=== PATIENT | male | born 1960 | race Caucasian/White ===

== ENCOUNTER → 2017-03-30 | Outpatient (CLI) | payer BC ==
--- NOTE | 2017-03-30 22:47 | MR ---
EXAMINATION TYPE: MR knee RT wo con DATE OF EXAM: 03/30/2017 6:42 PM COMPARISON: Outside radiographs 03/16/2017 HISTORY: 57-year-old male with knee pain and Swelling for one to 2 years, no known Trauma TECHNIQUE: Multiplanar, multisequence imaging of the right knee is performed without IV contrast. FINDINGS: The ACL and PCL are intact. There is edematous change on either side of the intact MCL. LCL complex is intact. There is a tear extending throughout the anterior horn and body of the lateral meniscus. In addition, there may be a small inner margin radial tear of the posterior horn close to but not at the posterio r root, sagittal PD FS image 22. Lateral compartment articular cartilage volume is maintained. There is an oblique tear at the junction of the posterior horn and body of the medial meniscus. Media l compartment articular cartilage volume is maintained. There is a moderate thickness focal cartilage fissure along the mid patella with some underlying subc hondral cystic change, axial image 18 and sagittal image 19. Otherwise, the patellofemoral compartmen t articular cartilage volume is maintained. Nonspecific anterior soft tissue swelling. Extensor mechanism is intact. There is a hsmra-zj-hfldncyq knee joint effusion as well as a small leaking Farrell's cyst. Small effus ion within the deep infrapatellar bursa also noted. Additional small ganglions measuring up to 1.4 cm at the origin of both the medial and lateral heads of the gastrocnemius. Normal popliteal artery anatomy with mild diffuse muscular atrophy. No suspicious bone marrow replace ment. IMPRESSION: 1. Tear involving the anterior horn and body of the lateral meniscus. Additional small inner margin r adial tear of the posterior horn. 2. Tear at the junction of the posterior horn and body of the medial meniscus. 3. Grade 1 MCL sprain. 4. Moderate thickness focal chondral fissure along the mid patella. 5. Small to moderate knee joint effusion and small leaking Farrell's cyst. Nonspecific anterior soft ti ssue swelling.
== END | disposition home or self-care (01) ==
LOC: RADMRIMAIN 18:03
PROVIDERS: ATTEND Orthopaedic Surgery
DX: M23.241 Derangement of anterior horn of lateral meniscus due to old tear or injury, right knee (principal); M23.251 Derangement of posterior horn of lateral meniscus due to old tear or injury, right knee

== ENCOUNTER → 2017-05-18 | Outpatient (CLI) | payer BC ==
--- NOTE | 2017-05-19 09:55 | ECHOF ---
Referral Reason:I42.9 cardiomyopathy MEASUREMENTS -------- HEIGHT: 182.9 cm WEIGHT: 93.0 kg BP: 111/66 IVSd: 1.0 cm (0.6 - 1.1) LVIDd: 5.2 cm (3.9 - 5.3) LVPWd: 1.2 cm (0.6 - 1.1) IVSs: 1.3 cm LVIDs: 4.2 cm LVPWs: 1.6 cm Ao Diam: 3.3 cm (2.0 - 3.7) AV Cusp: 2.4 cm (1.5 - 2.6) LA Diam: 3.2 cm (2.7 - 3.8) MV EXCURSION: 23.254 mm (> 18.000) MV EF SLOPE: 78 mm/s (70 - 150) EPSS: 0.9 cm MV E Bennie: 0.59 m/s MV DecT: 107 ms MV A Bennie: 0.61 m/s MV E/A Ratio: 0.97 RAP: 5.00 mmHg RVSP: 20.01 mmHg FINDINGS -------- Sinus rhythm. This was a technically good study. There is borderline concentric left ventricular hypertrophy. Overall left ventricular systolic function is low-normal with, an EF between 50 - 55 %. The right ventricle is normal in size and function. The left atrium is normal in size. The right atrium is normal in size. 1.5mg of Definity was utilized to rule out thrombus The aortic valve is trileaflet, and appears structurally normal. No aortic stenosis or regurgitation. Mild mitral regurgitation is present. There is mild mitral valve prolapse , predominately a posteriorly directed jet. Mild tricuspid regurgitation present. The right ventricular systolic pressure, as measured by Doppler, is 20.01mmHg. Pulmonic valve appears structurally normal. The aortic root size is normal. The pericardium is normal. CONCLUSIONS -------- 1. Sinus rhythm. 2. Mild mitral regurgitation is present. 3. There is mild mitral valve prolapse. 4. , predominately a posteriorly directed jet. 5. Mild tricuspid regurgitation present. 6. The right ventricular systolic pressure, as measured by Doppler, is 20.01mmHg. 7. Pulmonic valve appears structurally normal. 8. The aortic root size is normal. 9. The pericardium is normal. 10. This was a technically good study. 11. There is borderline concentric left ventricular hypertrophy. 12. Overall left ventricular systolic function is low-normal with, an EF between 50 - 55 %. 13. The right ventricle is normal in size and function. 14. The left atrium is normal in size. 15. The right atrium is normal in size. 16. 1.5mg of Definity was utilized to rule out thrombus 17. The aortic valve is trileaflet, and appears structurally normal. No aortic stenosis or regurgitation. CUSTOMER CARE CONSULTANT: Sandie Gavin RDCS
== END | disposition home or self-care (01) ==
LOC: RADECHMAIN 13:47
PROVIDERS: ATTEND Internal Medicine
DX: I08.1 Rheumatic disorders of both mitral and tricuspid valves (principal)
CPT/HCPCS: 93306; Q9957

== ENCOUNTER → 2017-05-21 | Outpatient (CLI) | payer BC ==
[2017-05-21 11:37] LABS: EKG EKG PERFORMED
[2017-05-21 12:30] LABS: Basophils % (A) 1 %; CH 31.7; CHCM 34.1; Eosinophils # (A) 0.2 k/uL (0-0.7); Eosinophils % (A) 3 %; HCT 43.2 % (39.0-53.0); HDW 2.32; Luc # (Auto) 0.14; Luc % (Auto) 3; Lymphocytes # (A) 1.5 k/uL (1.0-4.8); Lymphocytes % (A) 30 %; MCH 32.5 pg (25.0-35.0); MCHC 34.7 g/dL (31.0-37.0); MCV 93.5 fL (80.0-100.0); Mean Platelet Volume 7.3; Monocytes # (A) 0.3 k/uL (0-1.0); Monocytes % (A) 5 %; Neutrophils # (A) 2.9 k/uL (1.3-7.7); Neutrophils % (A) 58 %; RBC 4.63 m/uL (4.30-5.90); WBC (Perox) 5.13
[2017-05-21 13:11] LABS: Anion Gap 11 mmol/L; Carbon Dioxide 28 mmol/L (22-30); Chloride 103 mmol/L (98-107); Potassium 4.7 mmol/L (3.5-5.1); Sodium 142 mmol/L (137-145)
== END | disposition home or self-care (01) ==
LOC: LABPAT 11:29
PROVIDERS: ATTEND Orthopaedic Surgery
DX: Z01.810 Encounter for preprocedural cardiovascular examination (principal); M23.91 Unspecified internal derangement of right knee
CPT/HCPCS: 36415; 80051; 85025; 93005

== ENCOUNTER 2017-05-27 08:43 | Day surgery (SDC) | payer BC ==
[2017-05-21 11:07] VITALS: BMI 27.8
--- NOTE | 2017-05-27 07:11 | P.HPOR ---
History of Present Illness H&P Date: 05/27/17 Chief Complaint: 57-year-old patient seen with progressive right knee pain. Past Medical History Past Medical History: Hypertension History of Any Multi-Drug Resistant Organisms: None Reported Past Surgical History: Heart Catheterization Additional Past Surgical History / Comment(s): sx on sade big toes Past Anesthesia/Blood Transfusion Reactions: Postoperative Nausea & Vomiting ( PONV) Smoking Status: Former smoker - Past Family History Brother(s) Family Medical History: Cancer Additional Family Medical History / Comment(s): colon Medications and Allergies Home Medications Medication Instructions Recorded Confirmed Type Carvedilol [Coreg] 3.125 mg PO BID 05/21/17 05/21/17 History Lisinopril [Zestril] 2.5 mg PO QAM 05/21/17 05/21/17 History Allergies Allergy/AdvReac Type Severity Reaction Status Date / Time No Known Allergies Allergy Verified 05/21/17 10:58 Physical Examination Osteopathic Statement: *. No significant issues noted on an osteopathic structural exam other than those noted in the History and Physical/Consult. Range of motion 0-130. Tenderness along the medial joint line. Positive medial Ankush's. Ligaments are stable. Hip rotation is without pain. Distal neurovascular exam is intact. Results X-ray right knee 03/16/17 mild osteoarthritis MRI right knee 03/30/17 medial and lateral meniscal tears Assessment and Plan Plan: Assessment: Internal derangement right knee with medial and lateral meniscal tears Plan: Arthroscopy right knee with partial medial and lateral meniscectomy and debridement
[~2017-05-27 08:43] MED LIST: DEXAMETHASONE SOD PHOSPHATE 10 MG/ML 1 ML VIAL IV ONE; HYDROmorphone 1 MG/ML 1 ML SYRINGE IVP PRN; LACTATED RINGERS 1,000 ML IV SCH; MIDAZOLAM 2 MG/2 ML VIAL IV PRN; ONDANSETRON 4 MG/2 ML VIAL IVP ONE; ceFAZolin 2 GM in SODIUM CHLORIDE 0.9% 100 ML IVPB ONE
[2017-05-27] MEDS ORDERED: LIDOCAINE 1% 20 ML VIAL (10MG/ML) FOR IV START INTRADERMA ONE (09:55)
[2017-05-27] MEDS ORDERED: BUPIVACAIN-EPI 0.25%-1:200,000 30 ML VIAL INTRAARTIC ONE (10:49)
[2017-05-27 11:50] VITALS: TEMP 97.6
--- NOTE | 2017-05-27 11:52 | P.OP ---
Date of Procedure: 05/27/17 Preoperative Diagnosis: Internal derangement right knee Postoperative Diagnosis: 1. Tear lateral meniscus right knee 2. 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 Grade 2 chondromalacia patella right knee 4. Reactive synovitis lateral and suprapatellar compartments right knee Procedure(s) Performed: 1. Arthroscopic partial lateral meniscectomy right knee 2. Arthroscopic chondroplasty lateral femoral condyle right knee 3. Arthroscopic chondroplasty patella right knee 4. Arthroscopic partial synovectomy medial and suprapatellar compartments right knee Implants: Anesthesia: MATTA, local Surgeon: Robert Westbrook Estimated Blood Loss (ml): 10 Pathology: none sent Condition: stable Disposition: PACU Indications for Procedure: 57-year-old patient seen with progressive right knee pain. After treatment options were discussed, he elected to proceed with arthroscopy. Operative Findings: See description of procedure Description of Procedure: Patient was taken to the operative suite. Patient underwent a general anesthetic by the department of anesthesia. Patient was given preoperative antibiotics. The right lower extremity was placed in a well-padded arthroscopic leg horn. The right leg was prepped and draped in the normal sterile orthopedic fashion. A lateral parapatellar and suprapatellar incision was made. Trochars were inserted. Arthroscopy was initiated. Suprapatellar pouch revealed thick reactive synovitis. The patellofemoral joint appeared to articulate congruently. There was grade 2 chondromalacia with osteochondral tears. The scope was guided into the medial gutter. Loose bodies or plica were identified. The scope was then guided into the medial compartment. A medial parapatellar incision was made. Trocar inserted followed by probe. The medial meniscus appeared stable. Mild grade 1 chondromalacia changes of the medial compartment with no osteochondral tears. No loose bodies or reactive synovitis. Scope and probe were then guided into the intercondylar notch. Cruciates were identified, probed and found to be stable. The scope and probe were then guided into lateral compartment. There was a complex tear of the lateral meniscus involving the anterior horn, mid body and posterior horn. There were grade 1 chondromalacia changes of the lateral femoral condyle with small osteochondral tears present. There was reactive synovitis anteriorly. There were no loose bodies. A partial lateral meniscectomy was now performed down to stable tissue. I performed a chondroplasty of the lateral femoral condyle and partial synovectomy. The residual meniscus was found to be stable as was the residual osteochondral surface. The scope was in guided back into the suprapatellar compartment. I introduced a motorized shaver into the suprapatellar compartment debriding out some piecemeal fragments of meniscus. I performed a chondroplasty of the patella down to stable tissue followed by partial synovectomy. The shaver was removed. I took one more look on the entire knee, no residual debris. Instruments were now removed from the joint. The joint was infiltrated with .25% Marcaine. Steri-Strips were applied to the portal sites. Sterile dressings were applied. The patient was placed into a JAX hose. No tourniquet was utilized. The patient was awakened, transferred to a bed and taken to recovery stable satisfactory condition.
[2017-05-27] MEDS ORDERED: traMADol 50 MG TAB PO ONE (12:42)
[2017-05-27 12:57] VITALS: BP 124/76; PULSE 73; RESP 16
== END 2017-05-27 13:16 | disposition home or self-care (01) ==
LOC: OR 08:43
PROVIDERS: ATTEND Orthopaedic Surgery
DX: S83.281A Other tear of lateral meniscus, current injury, right knee, initial encounter (principal); X58.XXXA Exposure to other specified factors, initial encounter; M22.41 Chondromalacia patellae, right knee; M65.861 Other synovitis and tenosynovitis, right lower leg; I10 Essential (primary) hypertension; Z87.891 Personal history of nicotine dependence; Z79.899 Other long term (current) drug therapy
CPT/HCPCS: 29881; J1100; J0690; J2405

== ENCOUNTER 2019-06-23 09:19 | Day surgery (SDC) | payer BC ==
[2019-06-19 13:46] VITALS: BMI 29.1
[~2019-06-23 09:19] MED LIST changes: -DEXAMETHASONE SOD PHOSPHATE 10 MG/ML 1 ML VIAL IV ONE; -HYDROmorphone 1 MG/ML 1 ML SYRINGE IVP PRN; -MIDAZOLAM 2 MG/2 ML VIAL IV PRN; -ONDANSETRON 4 MG/2 ML VIAL IVP ONE; -ceFAZolin 2 GM in SODIUM CHLORIDE 0.9% 100 ML IVPB ONE
[2019-06-23 09:40] VITALS: RESP 16; TEMP 96.9
[2019-06-23] MEDS ORDERED: PROPOFOL 10 MG/ML 20 ML VIAL IV ONE (10:22)
--- NOTE | 2019-06-23 11:02 | P.PCN ---
Date of Procedure: 06/23/19 Procedure(s) Performed: BRIEF HISTORY: Patient is a 59-year-old pleasant male, scheduled for an elective colonoscopy as a part of screening for colorectal neoplasia and family history of colon cancer. His brother was diagnosed with colon cancer at age 42 and mother at age 72. His last colonoscopy was 5 years PROCEDURE PERFORMED: Colonoscopy. PREOPERATIVE DIAGNOSIS: Screening for colon cancer/family history of colon cancer. IV sedation per Anesthesia. PROCEDURE: After informed consent was obtained, the patient, was brought into the endoscopy unit. IV sedation was administered by Anesthesia under continuous monitoring. Digital rectal examination was normal. Initially the Olympus CF-160 flexible video colonoscope was then inserted in the rectum, gradually advanced into the cecum without any difficulty. Careful examination was performed as the scope was gradually being withdrawn. Ileocecal valve and the appendiceal orifice were visualized and appeared normal. Prep was excellent. Mucosa of the cecum, ascending colon, transverse colon, descending colon, sigmoid colon, and rectum appeared normal. Scattered sigmoidal diverticulosis seen. Retroflexion was performed in the rectum and no lesions were seen. The patient tolerated the procedure well. IMPRESSION: Normal-appearing colon from rectum to cecum with no evidence of colitis or colorectal neoplasia Scattered sigmoidal diverticulosis RECOMMENDATIONS: Findings of this examination were discussed with the patient as well as his family. He was advised to have a repeat screening colonoscopy every 5 years because of the family history of colon cancer..
[2019-06-23 11:17] VITALS: BP 115/77; PULSE 93
== END 2019-06-23 11:37 | disposition home or self-care (01) ==
LOC: ORWHC2ENDO 09:19
PROVIDERS: ATTEND Internal Medicine Gastroenterology
DX: Z12.11 Encounter for screening for malignant neoplasm of colon (principal); K57.30 Diverticulosis of large intestine without perforation or abscess without bleeding; I10 Essential (primary) hypertension; Z80.0 Family history of malignant neoplasm of digestive organs; Z79.899 Other long term (current) drug therapy; Z87.891 Personal history of nicotine dependence
CPT/HCPCS: J2704; G0105; 45378

== ENCOUNTER → 2019-06-26 | Outpatient (CLI) | payer BC ==
--- NOTE | 2019-06-26 14:58 | ECHOF ---
Referral Reason:I42.9 cardiomyopathy MEASUREMENTS -------- HEIGHT: 182.9 cm WEIGHT: 95.3 kg BP: 129/85 IVSd: 1.6 cm (0.6 - 1.1) LVIDd: 4.7 cm (3.9 - 5.3) LVPWd: 1.4 cm (0.6 - 1.1) IVSs: 1.5 cm LVIDs: 4.3 cm LVPWs: 1.9 cm RVIDd: 3.3 cm (< 3.3) LAESV Index (A-L): 20.30 ml/m Ao Diam: 3.6 cm (2.0 - 3.7) LA Diam: 2.2 cm (2.7 - 3.8) AV Cusp: 2.1 cm (1.5 - 2.6) EPSS: 1.2 cm MV E Bennie: 0.40 m/s MV DecT: 128 ms MV A Bennie: 0.61 m/s MV E/A Ratio: 0.65 RAP: 20.00* mmHg RVSP: 42.35 mmHg %FS: 18.58 % EDV(Teich): 133.91 ml EF(Teich): 38.12 % ESV(Teich): 82.86 ml IVSd: 1.61 cm (0.6 - 1.1) IVSs: 1.87 cm LVIDd: 5.28 cm (3.9 - 5.3) LVIDs: 4.30 cm LVPWd: 1.30 cm (0.6 - 1.1) LVPWs: 1.96 cm MV EF SLOPE: 99.85 mm/s (70 - 150) MV EXCURSION: 2.39 cm (> 18.000) SV(Teich): 51.05 ml FINDINGS -------- Sinus rhythm. This was a technically good study. The left ventricular size is normal. There is moderate concentric left ventricular hypertrophy. O verall left ventricular systolic function is mild-moderately impaired with, an EF between 40 - 45 %. The diastolic filling pattern indicates impaired relaxation. Basal anterior LV wall motion is hyp okinetic. Mid anterior LV wall motion is hypokinetic. Apical lateral LV wall motion is hypokine tic. The right ventricle is normal in size. Left atrium is normal size by volume. The right atrial size is normal. Aneurysmal septum The aortic valve is trileaflet and appears structurally normal. There is no evidence of aortic regu rgitation. There is no evidence of aortic stenosis. The mitral valve leaflets are mildly thickened. Mild mitral regurgitation is present. Mild tricuspid regurgitation present. There is mild pulmonary hypertension. The right ventricular systolic pressure, as measured by Doppler, is 42.35mmHg. There is no pulmonic regurgitation present. The aortic root size is normal. The inferior vena cava is dilated with no significant inspiratory collapse which is consistent estima cale right atrial pressure of >20 mmHg. There is no pericardial effusion. CONCLUSIONS -------- 1. Sinus rhythm. 2. This was a technically good study. 3. The left ventricular size is normal. 4. There is moderate concentric left ventricular hypertrophy. 5. Overall left ventricular systolic function is mild-moderately impaired with, an EF between 40 - 45 %. 6. The diastolic filling pattern indicates impaired relaxation. 7. Basal anterior LV wall motion is hypokinetic. 8. Mid anterior LV wall motion is hypokinetic. 9. Apical lateral LV wall motion is hypokinetic. 10. The right ventricle is normal in size. 11. Left atrium is normal size by volume. 12. The right atrial size is normal. 13. Aneurysmal septum 14. The aortic valve is trileaflet and appears structurally normal. 15. There is no evidence of aortic regurgitation. 16. There is no evidence of aortic stenosis. 17. The mitral valve leaflets are mildly thickened. 18. Mild mitral regurgitation is present. 19. Mild tricuspid regurgitation present. 20. There is mild pulmonary hypertension. 21. The right ventricular systolic pressure, as measured by Doppler, is 42.35mmHg. 22. There is no pulmonic regurgitation present. 23. The aortic root size is normal. 24. The inferior vena cava is dilated with no significant inspiratory collapse which is consistent es timated right atrial pressure of >20 mmHg. 25. There is no pericardial effusion. REVENUE TAX SPECIALIST: Sarah Guerra RDCS
== END ==
LOC: RADECHMAIN 08:11
PROVIDERS: ATTEND Internal Medicine
DX: I08.1 Rheumatic disorders of both mitral and tricuspid valves (principal); I27.20 Pulmonary hypertension, unspecified
CPT/HCPCS: 93306

== ENCOUNTER → 2019-09-15 | Outpatient (CLI) | payer BC ==
--- NOTE | 2019-09-16 11:09 | MR ---
EXAMINATION TYPE: MR knee LT wo con DATE OF EXAM: 09/15/2019 COMPARISON: None HISTORY: lt knee pain TECHNIQUE: Multiplanar, multisequence images of the knee is performed without IV contrast. FINDINGS: MEDIAL MENISCUS: Obliquely oriented posterior horn medial meniscal tear. Anterior horn is intact. LATERAL MENISCUS: Anterior and posterior horns are intact without tear. CRUCIATE LIGAMENTS: The anterior and posterior cruciate ligaments are intact and unremarkable. COLLATERAL LIGAMENTS: The medial collateral ligament and lateral collateral ligament complex are inta ct and unremarkable. EXTENSOR MECHANISM: Visualized quadriceps and patellar tendons are intact. EFFUSION: No significant suprapatellar joint effusion. POPLITEAL CYST: Septated difficult to measure popliteal cyst measuring at least 6.2 x 0.6 cm. TRICOMPARTMENT SPACES: Moderate degenerative narrowing of patellofemoral joint space and medial tibio femoral joint space. Changes of chondromalacia patella. CARTILAGE: Cartilaginous thinning noted patella. BONE MARROW SIGNAL: No focal abnormal marrow signal is appreciated. OTHER: No additional significant abnormality is appreciated. IMPRESSION: 1. Obliquely oriented posterior horn medial meniscal tear. 2. Septated difficult to measure popliteal cyst measuring at least 6.2 x 0.6 cm. 3. Degenerative changes as noted above osteoarthritis.
== END | disposition home or self-care (01) ==
LOC: RADMRIMAIN 20:31
PROVIDERS: ATTEND Orthopaedic Surgery
DX: S83.241A Other tear of medial meniscus, current injury, right knee, initial encounter (principal); M71.22 Synovial cyst of popliteal space [Baker], left knee; M17.12 Unilateral primary osteoarthritis, left knee

== ENCOUNTER → 2019-11-10 | Outpatient (CLI) | payer BC ==
--- NOTE | 2019-11-10 11:33 | NM ---
EXAMINATION TYPE: NM stress cardiolite complete DATE OF EXAM: 11/10/2019 COMPARISON: NONE HISTORY: Angina, cardiomyopathy TECHNIQUE: After the intravenous administration of 10.74 mCi Tc 99m Sestamibi - Rest images obtained 45 minutes post injection. The patient exercised using a LISSET protocol and 1 minute prior to peak exercise was injected with 26.8 mCi Tc 99m Sestamibi - Stress images obtained 10 minutes post inject ion. FINDINGS: Targeted heart rate was achieved during performance of the study. Review of stress and rest SPECT magalys ges demonstrates some mild decreased uptake along the inferior wall left ventricle on stress and rest images, along the inferolateral left ventricle and septum inferiorly some decreased uptake is presen t greater on stress than on rest images. Gated analysis shows normal wall motion with an estimated l eft ventricular ejection fraction of 89 %. IMPRESSION: Stress-induced left ventricular myocardial ischemia. Correlate for any history of prior infarct with possible skip-infarct stress-induced left ventricular myocardial ischemia. A Yellow level critical message alert has been initiated for Darrion Naidu MD via the [facility] Critical Results System on 11/10/2019 11:31 AM. This message alert has been sent to Darrion Naidu MD v la the preferences provided by the clinician for the receipt of Radiology Critical Findings. Message ID [id number].
--- NOTE | 2019-11-10 14:31 | EST ---
EXERCISE STRESS DATE OF SERVICE: 11/10/2019 AGE: 59 SEX: Male HT: 72" WT: 220 pounds PROTOCOL: Cardiolite Obed STAGE: II DURATION OF EXERCISE: 5 minutes HEART RATE REST: 81 BLOOD PRESSURE REST: 135/98 MAXIMUM HEART RATE ACHIEVED: 142 MAXIMUM BLOOD PRESSURE: 174/90 85% MPHR: 136 100% MPHR: 160 METS: 7.1 INDICATIONS: Chest pain. CLINICAL INFORMATION: STRESS DATA: Heart rate 81, pressure is 135/98 mmHg. Baseline EKG showed sinus mechanism. The patient exercised on the treadmill according to Obed protocol for a total of 5 minutes and achieved 7.1 METs. The max heart rate was 142, which is about 89% of maximum predicted heart rate. Maximum blood pressure was 174/90 mmHg. Clinically the patient did not have any symptoms of chest pain or chest discomfort. The EKG did not show any significant ST or T-wave abnormalities concerning for ischemia. CONCLUSION: 1. Average exercise tolerance. 2. Normal EKG in response to exercise. 3. Please follow up on the Cardiolite portion on separate report from Radiology Department. MMODL / IJN: [id number] /
== END | disposition home or self-care (01) ==
LOC: RADNMMAIN 08:22
PROVIDERS: ATTEND Internal Medicine
DX: I25.9 Chronic ischemic heart disease, unspecified (principal); I42.9 Cardiomyopathy, unspecified; I20.8 Other forms of angina pectoris
CPT/HCPCS: 93017; 78452; A9500

== ENCOUNTER → 2019-11-16 | Outpatient (CLI) | payer BC ==
[2019-11-16 11:13] LABS: HCT 45.9 % (39.0-53.0); HGB 15.5 gm/dL (13.0-17.5); MCH 32.4 pg (25.0-35.0); MCHC 33.8 g/dL (31.0-37.0); MCV 95.8 fL (80.0-100.0); Mean Platelet Volume 8.2; Platelet Count 269 k/uL (150-450); RBC 4.79 m/uL (4.30-5.90); RDW 12.6 % (11.5-15.5); WBC 5.1 k/uL (3.8-10.6)
[2019-11-16 11:36] LABS: African American GFR (CKD) >90 (>60 ml/min/1.73 sqM); Anion Gap 6 mmol/L; Blood Urea Nitrogen 16 mg/dL (9-20); Carbon Dioxide 30 mmol/L (22-30); Chloride 104 mmol/L (98-107); Non-African American GFR(CKD) >90 (>60 ml/min/1.73 sqM); Potassium 4.8 mmol/L (3.5-5.1); Sodium 140 mmol/L (137-145)
== END | disposition home or self-care (01) ==
LOC: LABPAT 10:44
PROVIDERS: ATTEND Internal Medicine Interventional Cardiology
DX: Z01.812 Encounter for preprocedural laboratory examination (principal); R94.39 Abnormal result of other cardiovascular function study
CPT/HCPCS: 36415; 80051; 82565; 84520; 85027

== ENCOUNTER → 2019-11-20 | Day surgery (SDC) | payer BC ==
[2019-11-16 11:08] VITALS: BMI 29.1
[~2019-11-20] MED LIST changes: +ALPRAZolam 0.25 MG TAB PO PRN; +ALPRAZolam 0.5 MG TAB PO PRN; +ASPIRIN 325 MG TAB PO ONE; +ASPIRIN 81 MG ONE; +ASPIRIN 81 MG PO SCH; +ATORVASTATIN 20 MG TAB PO SCH; +ATORVASTATIN 80 MG TAB PO ONE; +CARVEDILOL 6.25 MG TAB PO SCH; +HEPARIN SODIUM 1,000 UN/ML (10ML VL) IV ONE; +IOPAMIDOL-370 125ML BTL INJ ONE; -LACTATED RINGERS 1,000 ML IV SCH; +LIDOCAINE 1% INJ 10MG/ML (20 ML MDV) SQ ONE; +LISINOPRIL 5 MG TAB PO SCH; +NITROGLYCERIN SL TABS 0.4 MG TAB SUBLINGUAL PRN; +RX INFO: IV CONTRAST WAS GIVEN 1 EACH MISC MISCELLANE PRN; +SODIUM CHLORIDE 0.9% 1,000 ML IV SCH; +SODIUM CHLORIDE 0.9% 1,000 ML in EMPTY BAG 1 BAG IV ONE; +VERAPAMIL SYRINGE (5 MG/10 ML) INTRAARTER ONE; +fentaNYL (PF) 50 MCG/ML 2 ML AMP IVP ONE
[2019-11-20 09:12] VITALS: RESP 18; TEMP 97.7
--- NOTE | 2019-11-20 11:39 | CC ---
CARDIAC CATHETERIZATION REPORT Mr. Meyer is a 59-year-old male who is followed by Dr. Martel who has been complaining of exertional chest discomfort, had cardiac testing that revealed evidence of cardiomyopathy as well as inducible ischemia. In view of that, recommendation regarding cardiac catheterization, the procedure as well as the risks and the complications were discussed with the patient who is in full understanding and agreement. PROCEDURE: Patient was brought to [facility] in a fasting semi-sedated state after receiving fentanyl and Benadryl and achieving moderate conscious sedated state. Using Xylocaine anesthesia in the Seldinger technique a 6-[place] sheath was introduced in the right radial artery. Selective right and left coronary angiography performed using 5-[place] 3.5 bend right and left Kam catheter. Multiple views of the coronary artery including hemiaxial views were obtained. Following that, 5[place] tight pigtail catheter was introduced in the left ventricle and a 30-degree [place] view of the left ventricle was obtained. Following that, catheter and sheaths were removed. Hemostasis was obtained with deployment of a TR band. There was no immediate complication. Patient is returned to his room in stable condition. Of note, the patient received 5000 units of intravenous heparin as well as intra-arterial verapamil. FINDINGS: LEFT MAIN: This is a large-sized vessel bifurcating in left circumflex and left anterior descending artery. Left main coronary artery has no evidence of significant obstructive disease. LEFT ANTERIOR DESCENDING ARTERY: This is a large-sized vessel reaching to the apex, tapers down in distal third, giving rise to a large diagonal branch proximally. The left anterior descending artery as well as branches have no evidence of high-grade stenosis. LEFT CIRCUMFLEX: This is a nondominant large size vessel giving rise to a large obtuse marginal branch. The left circumflex as well as branches have no evidence of obstructive coronary artery disease. RIGHT CORONARY ARTERY: This is a large dominant vessel giving rise to a PDA distally. The right coronary artery in mid segment has a 30% to 40% plaque. The rest of the vessel has no high-grade stenosis. LEFT VENTRICULOGRAM: Left ventriculogram was performed in 30-degree [place] view and revealed mild global hypokinesis. The estimated ejection fraction is 45% to 50%. There was arrhythmia induced mitral regurgitation. HEMODYNAMICS: There was no gradient across the aortic valve. The left ventricular end-diastolic pressure was 12 mmHg. CONCLUSION: 1. 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 2. Right dominant system. 3. Mildly impaired left ventricular systolic function. RECOMMENDATION: In view of finding anatomy, I recommend to continue medical therapy with the aggressive coronary risk modification that has been initiated. Close followup of his left ventricular systolic function will be done and depending on his progress further recommendation will be made. Those findings and recommendation were discussed with the patient and his family and they are in full understanding and agreement. DURATION OF PROCEDURE: 20 minutes. JEAN CARLOS / ELSA: [id number] /
--- NOTE | 2019-11-20 11:42 | LTR ---
November 20, 2019 Re: Pj Meyer Dear Dr. Naidu: I had the opportunity to perform cardiac catheterization on Mr. Meyer at [facility] on the 20 of November and a full copy of the procedure note will be forwarded to you. In brief, he was found to have mild disease in the mid right coronary artery with a mildly to moderately impaired left ventricular systolic function. His findings are consistent with nonischemic cardiomyopathy and I would recommend continue medical therapy with close followup of his left ventricular systolic function. Depending on his progress, further recommendation will be made. Thank you again for allowing me the opportunity to participate in his care. Please feel free to call for any questions. Sincerely yours, MD JEAN CARLOS Keen / ELSA: [id number] /
[2019-11-20 15:33] VITALS: BP 104/77; PULSE 74
== END | disposition home or self-care (01) ==
LOC: CATHCVL 08:52
PROVIDERS: ATTEND Internal Medicine Interventional Cardiology
DX: I25.10 Atherosclerotic heart disease of native coronary artery without angina pectoris (principal); I42.9 Cardiomyopathy, unspecified; I10 Essential (primary) hypertension; E78.00 Pure hypercholesterolemia, unspecified; E78.5 Hyperlipidemia, unspecified; F17.210 Nicotine dependence, cigarettes, uncomplicated; Z79.82 Long term (current) use of aspirin; Z79.899 Other long term (current) drug therapy
CPT/HCPCS: 93458; J2001; J3010; J1644; Q9967

== ENCOUNTER 2019-12-28 09:47 | Day surgery (SDC) | payer BC ==
[2019-12-26 11:47] VITALS: BMI 28.5
--- NOTE | 2019-12-27 14:17 | HP ---
HISTORY AND PHYSICAL REASON FOR ADMISSION: Surgery is 12/28/2019. HISTORY OF PRESENT ILLNESS: Pj Meyer is a 59-year-old patient seen with progressive left knee pain. We discussed options. He elected to proceed with arthroscopy. Consent was obtained. PAST MEDICAL HISTORY: Hypertension. PAST SURGICAL HISTORY: Noncontributory. DAILY MEDICATIONS: 1. Carvedilol. 2. Lisinopril. ALLERGIES: None. SOCIAL HISTORY: Denies current tobacco use. PHYSICAL EXAMINATION: Evaluation of the left knee: His range of motion is zero to 130. Tenderness at the medial joint line. Positive medial Ankush's. Ligaments stable. Hip rotation without pain. Distal neurovascular exam intact. RADIOGRAPHS: Radiographs of the left knee revealed mild osteoarthritis and MRI of the left knee revealed medial meniscal tear and osteoarthritic changes. IMPRESSION: 1. Internal derangement of left knee with medial meniscal tear. 2. Left knee osteoarthritis. 3. Hypertension. PLAN: Left knee arthroscopy with partial meniscectomy, partial synovectomy, and debridement. Surgery is 12/28/2019. MMODL / IJN: [id number] /
[~2019-12-28 09:47] MED LIST changes: -ALPRAZolam 0.25 MG TAB PO PRN; -ALPRAZolam 0.5 MG TAB PO PRN; -ASPIRIN 325 MG TAB PO ONE; -ASPIRIN 81 MG ONE; -ASPIRIN 81 MG PO SCH; -ATORVASTATIN 20 MG TAB PO SCH; -ATORVASTATIN 80 MG TAB PO ONE; -CARVEDILOL 6.25 MG TAB PO SCH; +DEXAMETHASONE SOD PHOSPHATE 10 MG/ML 1 ML VIAL IV ONE; -HEPARIN SODIUM 1,000 UN/ML (10ML VL) IV ONE; +HYDROmorphone 0.5 MG/0.5 ML SYRINGE IVP PRN; -IOPAMIDOL-370 125ML BTL INJ ONE; +LACTATED RINGERS 1,000 ML IV SCH; +LIDOCAINE 1% 20 ML VIAL (10MG/ML) FOR IV START INTRADERMA PRN; -LIDOCAINE 1% INJ 10MG/ML (20 ML MDV) SQ ONE; -LISINOPRIL 5 MG TAB PO SCH; -NITROGLYCERIN SL TABS 0.4 MG TAB SUBLINGUAL PRN; +ONDANSETRON 4 MG/2 ML VIAL IVP ONE; -RX INFO: IV CONTRAST WAS GIVEN 1 EACH MISC MISCELLANE PRN; +SCOPOLAMINE 1.5MG/72HR PATCH TRANSDERM ONE; -SODIUM CHLORIDE 0.9% 1,000 ML IV SCH; -SODIUM CHLORIDE 0.9% 1,000 ML in EMPTY BAG 1 BAG IV ONE; -VERAPAMIL SYRINGE (5 MG/10 ML) INTRAARTER ONE; -fentaNYL (PF) 50 MCG/ML 2 ML AMP IVP ONE
[2019-12-28] MEDS ORDERED: fentaNYL (PF) 50 MCG/ML 2 ML AMP ONE (11:50)
[2019-12-28] MEDS ORDERED: LIDOCAINE 1% INJ 10MG/ML (20 ML MDV) ONE (11:50)
[2019-12-28] MEDS ORDERED: MIDAZOLAM 2 MG/2 ML VIAL ONE (11:50)
[2019-12-28] MEDS ORDERED: PROPOFOL 10 MG/ML 20 ML VIAL IV ONE (11:50)
[2019-12-28] MEDS ORDERED: BUPIVACAINE (PF) 0.25% 30 ML VIAL SQ ONE (12:15)
--- NOTE | 2019-12-28 12:46 | P.OP ---
Date of Procedure: 12/28/19 Preoperative Diagnosis: Internal derangement left knee Postoperative Diagnosis: 1. Tear medial meniscus left knee 2. Reactive synovitis medial, lateral and suprapatellar compartments left knee Procedure(s) Performed: 1. Arthroscopic partial medial meniscectomy left knee 2. Arthroscopic partial synovectomy medial, lateral and suprapatellar compartments left knee Anesthesia: MATTA, local Surgeon: Robert Westbrook Estimated Blood Loss (ml): 4 Pathology: none sent Condition: stable Disposition: PACU Indications for Procedure: 59-year-old patient seen with progressive left knee pain. After treatment options were discussed, he elected to proceed with arthroscopy. Operative Findings: See description of procedure Description of Procedure: Patient was taken to the operative suite. Patient underwent a general anestheti c by the department of anesthesia. Patient was given preoperative antibiotics. The left lower extremity was placed in a well-padded arthroscopic leg horn. The left leg was prepped and draped in the normal sterile orthopedic fashion. A lateral parapatellar and suprapatellar incision was made. Trochars were inserted. Arthroscopy was initiated. Suprapatellar pouch revealed diffuse thick reactive synovitis. The patellofemoral joint appeared to articulate congruently. There was no significant chondromalacia present. The scope was guided into the medial gutter. No loose bodies or plica were identified. The scope was then guided into the medial compartment. A medial parapatellar incision was made. Trocar inserted followed by probe. There was a complex tear involving posterior horn medial meniscus. There was some mild grade 1 chondromalacia diffusely about the medial compartment. There was thick reactive synovitis anteriorly. I performed a partial medial meniscectomy getting down to stable tissue. I performed a partial synovectomy. The residual meniscus was probed and found to be stable. There was good decompression of the synovitis. Scope and probe were then guided into the intercondylar notch. Cruciates were identified, probed and found to be stable. The scope and probe were then guided into lateral compartment. Lateral meniscus was probed and noted to have some mild fraying at the midbody area. There was thick reactive synovitis anteriorly. There were no loose bodies. There was no significant chondromalacia. I debrided that mild fraying with a motorized shaver. I performed a partial synovectomy decompressing the reactive synovitis. There was good decompression of the synovitis. The scope was in guided back into the suprapatellar compartment. I introduced a motorized shaver into the super patellar compartment. I debrided some piecemeal fragments of meniscus I encountered. I performed a partial synovectomy decompressing reactive synovit is. The shaver was removed. I took one more look on the entire knee, no residual debris. Instruments were now removed from the joint. The joint was infiltrated with .25% Marcaine. Steri-Strips were applied to the portal sites. Sterile dressings were applied. The patient was placed into a JAX hose. No tourniquet was utilized. The patient was awakened, transferred to a bed and taken to recovery stable satisfactory condition.
[2019-12-28 12:55] VITALS: TEMP 97.5
[2019-12-28 13:54] VITALS: BP 123/78; PULSE 65; RESP 20
== END 2019-12-28 14:17 | disposition home or self-care (01) ==
LOC: OR 09:47
PROVIDERS: ATTEND Orthopaedic Surgery
DX: M23.222 Derangement of posterior horn of medial meniscus due to old tear or injury, left knee (principal); M17.12 Unilateral primary osteoarthritis, left knee; M65.862 Other synovitis and tenosynovitis, left lower leg; M94.262 Chondromalacia, left knee; I25.10 Atherosclerotic heart disease of native coronary artery without angina pectoris; I10 Essential (primary) hypertension; M51.37 Other intervertebral disc degeneration, lumbosacral region; E78.5 Hyperlipidemia, unspecified; I42.9 Cardiomyopathy, unspecified; I49.3 Ventricular premature depolarization; R07.89 Other chest pain; M54.30 Sciatica, unspecified side; Z79.899 Other long term (current) drug therapy; Z79.82 Long term (current) use of aspirin; Z83.79 Family history of other diseases of the digestive system; Z80.0 Family history of malignant neoplasm of digestive organs; Z82.69 Family history of other diseases of the musculoskeletal system and connective tissue; Z98.890 Other specified postprocedural states; Z87.891 Personal history of nicotine dependence
CPT/HCPCS: 29881; J2250; J1100; J0690; J2405; J2001; J3010; J2704

== ENCOUNTER → 2020-05-29 | Outpatient (CLI) | payer BC ==
--- NOTE | 2020-05-29 11:05 | CT ---
EXAMINATION TYPE: CT chest w con DATE OF EXAM: 05/29/2020 COMPARISON: None HISTORY: chest pain CT DLP: 688 mGycm Automated exposure control for dose reduction was used. CONTRAST: CT scan of the chest is performed with IV Contrast, patient injected with 100 mL of Isovue 300. FINDINGS: LUNGS: The lungs are grossly clear, there is no concerning parenchymal mass or nodule identified. T here is no pleural effusion or pneumothorax seen. The tracheobronchial tree is patent. MEDIASTINUM: There are no greater than 1 cm hilar or mediastinal lymph nodes. No pericardial effusi on is seen. AORTA: No additional significant abnormality is seen. OTHER: Hypodensities within the thyroid likely represent nodules, multinodular goiter. Low-attenuati on within the liver may be due to hepatic steatosis. There is a spinal curvature present. IMPRESSION: No abnormality evident to account for patient's symptoms. Additional findings described above.
== END | disposition home or self-care (01) ==
LOC: RADCTMAIN 08:07
PROVIDERS: ATTEND Internal Medicine
DX: R07.9 Chest pain, unspecified (principal)
CPT/HCPCS: 71260; Q9967

== ENCOUNTER 2021-01-14 07:55 | Day surgery (SDC) | payer BC ==
[2021-01-09 10:46] VITALS: BMI 28.0
[~2021-01-14 07:55] MED LIST changes: -DEXAMETHASONE SOD PHOSPHATE 10 MG/ML 1 ML VIAL IV ONE; -HYDROmorphone 0.5 MG/0.5 ML SYRINGE IVP PRN; -LACTATED RINGERS 1,000 ML IV SCH; +LIDOCAINE 1% (10MG/ML) FOR IV START INTRADERMA PRN; -LIDOCAINE 1% 20 ML VIAL (10MG/ML) FOR IV START INTRADERMA PRN; -ONDANSETRON 4 MG/2 ML VIAL IVP ONE; -SCOPOLAMINE 1.5MG/72HR PATCH TRANSDERM ONE
[2021-01-14] MEDS: LACTATED RINGERS 1,000 ML IV SCH ×2 (08:22→09:16)
[2021-01-14 08:25] VITALS: RESP 16; TEMP 97.1
[2021-01-14] MEDS ORDERED: LACTATED RINGERS 1,000 ML IV ONE (09:12)
[2021-01-14] MEDS ORDERED: PROPOFOL 10 MG/ML 20 ML VIAL IV ONE (09:13)
--- NOTE | 2021-01-14 09:40 | P.PCN ---
Date of Procedure: 01/14/21 Description of Procedure: BRIEF HISTORY: Patient is a 61-year-old male presents for outpatient esophagogastroduodenoscopy for evaluation of dysphagia. Patient has long-standing history of reflux. His symptoms were well controlled on omeprazole therapy. He does report a globus sensation and solid food dysphagia while off of the medication. PROCEDURE PERFORMED: Esophagogastroduodenoscopy with biopsy. PREOPERATIVE DIAGNOSIS: Dysphagia, GERD. ESTIMATED BLOOD LOSS: Minimal. IV sedation per anesthesia. PROCEDURE: After informed consent was obtained, the patient was brought into the endoscopy unit. IV sedation was administered by Anesthesia under continuous monitoring. Initially the Olympus GIF-190 video endoscope was inserted into the mouth. Esophagus intubated without any difficulty. It was gradually advanced into the stomach and duodenum and carefully examined. The bulb and the second part of the duodenum appeared normal, with biopsies taken. The scope at this time was withdrawn to the stomach, adequately insufflated with air, and upon careful examination, mucosa of the antrum, body, cardia and the fundus appeared normal, except for some mild scattered erythema in the antrum and body suggestive of mild gastritis with biopsies taken. The scope was then withdrawn into the esophagus. The GE junction was located at 39 cm from the incisors, with biopsies taken. There was a widely patent distal esophageal Schatzki's ring. Mid esophageal biopsies were also taken to rule out eosinophilic esophagitis. The esophagus appeared normal. There were no erosions or ulcerations seen and the patient tolerated the procedure well. IMPRESSION: 1. Mild gastritis. 2. Biopsies of the duodenum, antrum body, GE junction and mid esophagus. RECOMMENDATIONS: The findings of this examination were discussed with the patient and his family. Okay to resume diet. Okay to resume medications. Await pathology from biopsies. Follow up in the GI clinic as needed.
[2021-01-14 09:54] VITALS: BP 120/83; PULSE 73
== END 2021-01-14 10:13 | disposition home or self-care (01) ==
LOC: ORWHC2ENDO 07:55
PROVIDERS: ATTEND Internal Medicine
DX: K29.50 Unspecified chronic gastritis without bleeding (principal); K21.00 Gastro-esophageal reflux disease with esophagitis, without bleeding; R13.10 Dysphagia, unspecified; I11.0 Hypertensive heart disease with heart failure; I50.9 Heart failure, unspecified; Z79.82 Long term (current) use of aspirin; Z79.899 Other long term (current) drug therapy
CPT/HCPCS: 88305; 43239; J2704; 45380

== ENCOUNTER → 2021-06-17 | Outpatient (CLI) | payer BC ==
--- NOTE | 2021-06-17 13:46 | XR ---
EXAMINATION TYPE: XR Hip Complete RT DATE OF EXAM: 06/17/2021 COMPARISON: NONE HISTORY: Pain TECHNIQUE: 2 views submitted FINDINGS: There is no evidence of erosive change or acute fracture. IMPRESSION: 1. No evidence of acute fracture or dislocation.
--- NOTE | 2021-06-17 13:49 | XR ---
EXAM TYPE: LUMBAR SPINE X RAY SERIES COMPARISON: NONE HISTORY: Pain TECHNIQUE: 4 views are submitted. FINDINGS: Alignment is anatomic. The pedicles are intact. The transverse processes are intact. There is hype rtrophic and degenerative changes of the spine most marked at levels L3-S1. Multilevel facet arthropa thy. Suspect multilevel neural foraminal encroachment. Anterior hypertrophic spurs involving the mid and lower lumbar spine. IMPRESSION: 1. Multilevel hypertrophic and degenerative changes.
== END | disposition home or self-care (01) ==
LOC: RADXRMAIN 13:13
PROVIDERS: ATTEND Family Medicine
DX: M47.816 Spondylosis without myelopathy or radiculopathy, lumbar region (principal); M25.552 Pain in left hip
CPT/HCPCS: 72100; 73502

== ENCOUNTER → 2021-07-21 | Outpatient (CLI) | payer BC ==
--- NOTE | 2021-07-22 06:39 | MR ---
EXAMINATION TYPE: MR lumbar spine wo con DATE OF EXAM: 07/21/2021 COMPARISON: Lumbar spine x-ray June 17, 2021 HISTORY: Low back pain down right leg for 6 weeks. TECHNIQUE: Multiplanar, multisequence imaging of the lumbar spine is performed without IV contrast. FINDINGS: Sagittal images of the lumbar spine show vertebral body heights and alignment to remain sat isfactory. Multilevel disc desiccation with mild multilevel disc space narrowing. The conus medullar is is normal in position and signal ending at mid L1 level. The bone marrow signal intensity is over all heterogeneous with mild to moderate multilevel anterior spurring greatest in the lower lumbar spi ne. Axial images at T12-L1 level appear within normal limits. Axial images at L1-L2 level show hgur-kt-ijwebfiu facet degenerative changes bilaterally. Spinal sandor l is preserved. Axial images at L2-L3 level show ykxf-od-vjfdkeyt facet degenerative changes bilaterally. There is mi zd-pt-qztnunwb broad disc bulge minimally effacing the anterior thecal sac. Patent bilateral neural f oramina. Axial images at L3-L4 level shows auaj-zk-fdgytijt facet degenerative changes and ligamentum flavum f or atrophy. There is moderate broad-based disc bulge mildly effacing the anterior thecal sac. Patent bilateral neural foramina. Axial images at L4-L5 level show isna-ll-imqeqcwk facet degenerative changes and ligamentum flavum hy pertrophy. There is moderate broad disc bulge effacing the anterior thecal sac, there is mild bilater al anterior inferior neural foraminal narrowing. Axial images at L5-S1 level show moderate facet arthropathy bilaterally. There is mild to moderate br oad disc bulge. Spinal canal is preserved. Mild bilateral neural foraminal narrowing is seen. Paraspinal muscle bulk is maintained. IMPRESSION: Multilevel degenerative changes greatest in the lower lumbar spine as detailed above.
== END | disposition home or self-care (01) ==
LOC: RADMRIMAIN 19:44
PROVIDERS: ATTEND Orthopaedic Surgery
DX: M51.17 Intervertebral disc disorders with radiculopathy, lumbosacral region (principal); M47.27 Other spondylosis with radiculopathy, lumbosacral region; M99.73 Connective tissue and disc stenosis of intervertebral foramina of lumbar region
CPT/HCPCS: 72148

== ENCOUNTER → 2022-02-12 | Outpatient (CLI) | payer BC ==
--- NOTE | 2022-02-12 15:46 | XR ---
EXAMINATION TYPE: XR chest 2V DATE OF EXAM: 02/12/2022 COMPARISON: NONE TECHNIQUE: PA and lateral views submitted. HISTORY: Cough FINDINGS: The lungs are clear and there is no pneumothorax, pleural effusion, or focal pneumonia. Ectasia of the aorta. No overt failure. Hypertrophic change of the spine. IMPRESSION: 1. No acute process. Mild prominence of the thoracic aorta correlate with CT scan as clinically warra nted.
== END | disposition home or self-care (01) ==
LOC: RADXRMAIN 15:14
PROVIDERS: ATTEND Internal Medicine
DX: R05.9 Cough, unspecified (principal)
CPT/HCPCS: 71046

== ENCOUNTER → 2022-03-03 | Outpatient (CLI) | payer BC ==
--- NOTE | 2022-03-03 10:45 | CT ---
EXAMINATION TYPE: CT angio chest DATE OF EXAM: 03/03/2022 COMPARISON: CT dated 05/29/2020 HISTORY: chest pain CT DLP: 594 mGy.cm. Automated Exposure Control for Dose Reduction was Utilized. TECHNIQUE AND CONTRAST: CTA scan of the thorax is performed with IV Contrast, patient injected with 100 mL of Isovue 370, pul [facility] angiogram protocol. MIP Images are created on an independent workstation and reviewed. FINDINGS: No definite filling defect within the pulmonary trunk, main pulmonary arteries, lobar and segmental b ranches to suggest pulmonary embolism. Subsegmental branches are suboptimally assessed. The pulmonary trunk measures 2.9 cm. No gross cardiomegaly. The ascending aorta measures 3.9 cm. No pathologically enlarged lymph nodes in the chest. Unremarkable lungs. No pleural effusion or pneumothorax. Patent central airways. Left thyroid lobe hy podensity, please correlate with thyroid ultrasound results. Bilateral gynecomastia changes. Degenera tive changes of the lower cervical spine, right sternoclavicular joint and acromioclavicular joints. IMPRESSION: No evidence of pulmonary embolism. No definite acute abnormality seen in the chest. Incidental findin gs as described above.
== END | disposition home or self-care (01) ==
LOC: RADCTMAIN 08:04
PROVIDERS: ATTEND Internal Medicine
DX: R07.9 Chest pain, unspecified (principal)
CPT/HCPCS: 71275; Q9967

== ENCOUNTER → 2022-07-28 | Outpatient (CLI) | payer BC ==
--- NOTE | 2022-07-28 09:10 | US ---
EXAMINATION TYPE: US thyroid st tissue head/neck DATE OF EXAM: 07/28/2022 COMPARISON: CTA chest March 03, 2022 CLINICAL HISTORY: E04.1 NONTOXIC SINGLE THYROID NODULE. GLAND SIZE: Right Lobe: 5.0 x 1.3 x 1.7 cm Overall Parenchyma: heterogenous Left Lobe: 5.7 x 1.5 x 1.7 cm Overall Parenchyma: heterogeneous Isthmus Thickness: 0.2 cm NODULES RIGHT: # of nodules measured on right: 2 1. 1.0 X 1.2 x 0.9 cm, lower medial, solid or almost completely solid, isoechoic nodule, which is w ider than tall, with ill-defined margins, without echogenic foci. Prior size: no previous TR 3 lesion 2. 0.5 X 0.4 x 0.4 cm, lower lateral, cystic or almost completely cystic, hypoechoic nodule, which is wider than tall, with smooth margins, without echogenic foci. Prior size: no previous LEFT: # of nodules measured on left: 2 1. 1.6 X 1.3 x 1.3 cm, lower mid, solid or almost completely solid, isoechoic nodule, which is wide r than tall, with ill-defined margins, without echogenic foci. Prior size: no previous TR 3 lesion 2. 1.9 X 1.0 x 1.3 cm, lower medial, solid or almost completely solid, isoechoic nodule, which is wider than tall, with ill-defined margins, without echogenic foci. Prior size: no previous TR 3 lesion. ISTHMUS: # of nodules measured in the isthmus: 0 Bilateral neck scanned, no evidence of lymphadenopathy. Heterogeneous normal-sized thyroid with scattered bilateral nodules as detailed above. IMPRESSION: Findings consistent with multinodular goiter. Follow-up ultrasound at 1, 5, and 3 years a dvised. 2017 ACR TI-RADS LEVEL: TR-RADS 3 - Mildly Suspicious: Follow if > 1.5 cm, FNA if > 2.5 cm *Highest TI-RADS level nodule reported
== END | disposition home or self-care (01) ==
LOC: RADUSWWP 08:13
PROVIDERS: ATTEND Internal Medicine
DX: E04.1 Nontoxic single thyroid nodule (principal)
CPT/HCPCS: 76536

== ENCOUNTER → 2022-08-17 | Outpatient (CLI) | payer BC | END | disposition home or self-care (01) | LOC: LABWHC1 14:31 | PROVIDERS: ATTEND Internal Medicine Endocrinology, Diabetes & Metabolism | DX: E04.2 Nontoxic multinodular goiter (principal); N62 Hypertrophy of breast | CPT/HCPCS: 36415; 84270; 84402; 84403; 84439; 84443 ==

== ENCOUNTER 2022-08-20 08:55 | Day surgery (SDC) | payer BC ==
[2022-08-20 09:49] VITALS: RESP 16; TEMP 97.8
[2022-08-20 10:19] VITALS: BP 129/86; PULSE 74
--- NOTE | 2022-08-20 11:24 | US ---
ULTRASOUND GUIDED FNA THYROID BIOPSY: CLINICAL HISTORY: Request for a 1.9 cm left thyroid nodule FNA FINDINGS: The procedure was explained to the patient. The risks, complications, benefits and alternatives were discussed and any questions were answered. Informed consent was obtained. Patient was placed supin e on the ultrasound table and prepped and draped in the usual sterile fashion. Utilizing a 25 gauge needle, five passes were made into the requested nodule. Patient was stable throughout the procedure. Pathology is pending. All elements of maximal barrier technique were utilized. IMPRESSION: 1. Successful ultrasound guided FNA thyroid biopsy.
== END 2022-08-20 10:19 | disposition home or self-care (01) ==
LOC: RADPROMAIN 08:55
PROVIDERS: ATTEND Internal Medicine Endocrinology, Diabetes & Metabolism
DX: E04.2 Nontoxic multinodular goiter (principal)
CPT/HCPCS: 10005; 88173; 88305

== ENCOUNTER → 2022-11-09 | Outpatient (CLI) | payer BC ==
--- NOTE | 2022-11-09 14:59 | XR ---
EXAMINATION TYPE: XR chest 2V DATE OF EXAM: 11/09/2022 COMPARISON: 02/12/2022 TECHNIQUE: PA and lateral views submitted. HISTORY: Cough FINDINGS: The lungs are clear and there is no pneumothorax, pleural effusion, or focal pneumonia. There is ec nancy of the aorta. Uropathy of the right shoulder elevated left clavicle suggesting AC joint separat ion on the left. No overt failure. Hypertrophic and degenerative changes spine. IMPRESSION: 1. Findings suggestive aortic aneurysm. Previous CT scan measured the ascending aorta is 3.9 cm.
== END | disposition home or self-care (01) ==
LOC: RADXRMAIN 14:20
PROVIDERS: ATTEND Internal Medicine
DX: R05.9 Cough, unspecified (principal)
CPT/HCPCS: 71046

== ENCOUNTER → 2022-12-08 | Outpatient (CLI) | payer BC ==
--- NOTE | 2022-12-08 10:19 | CT ---
EXAMINATION TYPE: CT angio chest DATE OF EXAM: 12/08/2022 9:28 AM COMPARISON: 03/03/2022 HISTORY: Aortic aneurysm-ascending CT DLP: 767.4 mGycm Automated exposure control for dose reduction was used. CONTRAST: CTA scan of the thorax is performed without and with IV Contrast, patient injected with 100 mL of Iso sesar 370, pulmonary embolism protocol. . FINDINGS: LUNGS: The lungs are grossly clear, there is no concerning parenchymal mass or nodule identified. T here is no pleural effusion or pneumothorax seen. The tracheobronchial tree is patent. Sterile groun dglass changes suggestive of atelectasis. MEDIASTINUM: There is suboptimal enhancement of the pulmonary artery and its branches are There are n o greater than 1 cm hilar or mediastinal lymph nodes. No pericardial effusion is seen. Ascending aorta measures a maximal dimension of 3.6 cm. Descending thoracic aorta measures a maximum dimension 3.1 cm. No sizable aneurysm. Heart size stable. OTHER: Hypertrophic and degenerative changes of the spine. Heterogeneous enhancement left thyroid co rrelate for thyroid nodules. IMPRESSION: 1. No diagnostic evidence of aortic aneurysm. 2. Suspect left-sided thyroid nodule.
== END | disposition home or self-care (01) ==
LOC: RADCTMAIN 08:47
PROVIDERS: ATTEND Internal Medicine
DX: I71.20 Thoracic aortic aneurysm, without rupture, unspecified (principal)
CPT/HCPCS: 71275; Q9967

== ENCOUNTER → 2022-12-21 | Outpatient (CLI) | payer BC ==
--- NOTE | 2022-12-21 09:13 | XR ---
EXAMINATION TYPE: XR shoulder complete LT DATE OF EXAM: 12/21/2022 COMPARISON: NONE HISTORY: Pain TECHNIQUE: Three views are submitted. FINDINGS: The osseous structures are intact. There is no acute fracture or dislocation. Hypertrophic arthropat hy of the AC joint. There is a bony prominence extending up inferior margin of the clavicle appears c hronic. IMPRESSION: 1. Bony prominence extending along the inferior margin of the mid left clavicle appears chronic. 2. AC joint arthropathy with slight elevation of clavicle cannot exclude AC joint separation consider follow-up MRI
== END | disposition home or self-care (01) ==
LOC: RADXRMAIN 08:54
PROVIDERS: ATTEND Internal Medicine
DX: M12.812 Other specific arthropathies, not elsewhere classified, left shoulder (principal); M25.512 Pain in left shoulder

== ENCOUNTER → 2023-02-03 | Outpatient (CLI) | payer BC ==
--- NOTE | 2023-02-04 20:07 | MR ---
EXAMINATION TYPE: MR shoulder LT wo con DATE OF EXAM: 02/03/2023 COMPARISON: Outside radiograph 01/19/2023 HISTORY: 63-year-old male M25.512, LT SHOULDER PAIN, FELL ON ICE 4 WEEKS AGO TECHNIQUE: Multiplanar, multisequence imaging of the left shoulder is performed without contrast. FINDINGS: There is inhomogeneous signal at the junction of the intracapsular and extracapsular portions of the long head biceps tendon. The extracapsular portion remains appropriately situated along the bicipital groove with mild tenosynovial fluid. There is extensive tear of the subscapularis tendon. Some bursal sided fibers remain intact. Minimal fatty streaks within the subscapularis muscle belly with tracking edema. Diffuse heterogeneous signal of both the supraspinatus and infraspinatus tendons. Extensive bursal si ded fraying and shallow bursal sided tears are present throughout the supraspinatus tendon. Some flui d tracks along the mid supraspinatus myotendinous junction. The supraspinatus or infraspinatus tendons show high-grade partial or full-thickness tear. There is a tlgo-fx-rnrvrjqz effusion within the subacromial/subdeltoid bursa. Some synovial prolifera tion is present along the anterior aspect of the bursa. Moderate degenerative change at the acromioclavicular joint with articular irregularity and capsular hypertrophy. There is some deformity to the joint capsule with marginal spurring and additional thick ening and some ossification along the region of the coracoclavicular ligaments. Moderate thinning of superior glenohumeral joint articular cartilage. The posterior glenoid labrum is degenerative and blunted. There appears to be a tear that extends karen ng the anterior half of the glenoid labrum. Associated 2.6 x 1.8 x 1.0 cm anterior paralabral cyst. T here is a mild to moderate glenohumeral joint effusion. No Hill-Sachs deformity or os acromiale. No suspicious bone marrow replacement. IMPRESSION: 1. Diffuse rotator cuff tendinosis. There is extensive tear of the subscapularis tendon. The majority of the tendon appears to be torn. Some residual bursal sided fibers are visualized. 2. Extensive bursal sided fraying and shallow tearing throughout the supraspinatus tendon. No high-gr jerry partial or full-thickness supraspinatus/infraspinatus tendon tear. 3. Mild over glenohumeral joint OA. Degenerative and blunted posterior glenoid labrum. Tear along the anterior half of the glenoid labrum with associated 2.6 x 1.8 x 1.0 cm anterior paralabral cyst. 4. Mild to moderate subacromial/subdeltoid bursal effusion/bursitis. 5. Sequela of old healed AC joint injury. The AC joint capsule is irregular and there is chronic ossi fication present along the coracoclavicular ligaments.
== END | disposition home or self-care (01) ==
LOC: RADMRIMAIN 10:55
PROVIDERS: ATTEND Orthopaedic Surgery
DX: M19.012 Primary osteoarthritis, left shoulder (principal); M75.112 Incomplete rotator cuff tear or rupture of left shoulder, not specified as traumatic; M67.814 Other specified disorders of tendon, left shoulder; M71.312 Other bursal cyst, left shoulder; M94.8X1 Other specified disorders of cartilage, shoulder

== ENCOUNTER → 2023-03-11 | Outpatient (CLI) | payer BC ==
[2023-03-11 21:01] LABS: Basophils # (A) 0.07 X 10*3/uL (0.00-0.10); Basophils % (A) 1.1 %; Eosinophils # (A) 0.18 X 10*3/uL (0.04-0.35); Eosinophils % (A) 2.8 %; HCT 45.3 % (39.6-50.0); HGB 15.1 g/dL (13.0-17.0); Immature Grans, Automated 0.3 %; Lymphocytes % (A) 26.4 %; MCH 31.7 pg (27.0-32.0); MCHC 33.3 g/dL (32.0-37.0); Mean Platelet Volume 10.8 fL (9.5-12.2); Monocytes # (A) 0.57 X 10*3/uL (0.20-1.00); Monocytes % (A) 8.9 %; NRBC Per 100 WBC 0 /100 WBCS (0.0-0.0); Neutrophils % (A) 60.5 %; Platelet Count 269 X 10*3/uL (140-440); RBC 4.77 X 10*6/uL (4.40-5.60); RDW 12.9 % (11.5-14.5); WBC 6.44 X 10*3/uL (4.50-10.00)
[2023-03-11 21:31] LABS: Anion Gap 11.6 mmol/L (10.00-18.00); Carbon Dioxide 29.4 mmol/L (20.0-27.5); Potassium 4.4 mmol/L (3.5-5.5)
== END | disposition home or self-care (01) ==
LOC: LABPAT 13:31
PROVIDERS: ATTEND Orthopaedic Surgery
DX: Z01.812 Encounter for preprocedural laboratory examination (principal); M75.41 Impingement syndrome of right shoulder
CPT/HCPCS: 80051; 85025

== ENCOUNTER 2023-03-24 06:03 | Day surgery (SDC) | payer BC ==
[~2023-03-24 06:03] MED LIST changes: +DEXAMETHASONE SOD PHOSPHATE 4 MG/ML 1 ML VIAL IV ONE; +LACTATED RINGERS 1,000 ML IV SCH; +MIDAZOLAM 2 MG/2 ML VIAL IV PRN; +ONDANSETRON 4 MG/2 ML VIAL IVP ONE
[2023-03-24] MEDS ORDERED: HYDROmorphone 0.5 MG/0.5 ML SYRINGE IVP PRN (07:00)
[2023-03-24] MEDS ORDERED: ONDANSETRON 4 MG/2 ML VIAL ONE (07:05)
[2023-03-24] MEDS ORDERED: MIDAZOLAM 2 MG/2 ML VIAL IV ONE (07:22)
[2023-03-24] MEDS ORDERED: fentaNYL (PF) 50 MCG/ML 2 ML AMP IV ONE (07:22)
--- NOTE | 2023-03-24 07:35 | HP ---
HISTORY AND PHYSICAL DATE OF SCHEDULED SURGERY: 03/24/2023. HISTORY OF PRESENT ILLNESS: Pj Mccarthy is a 63-year-old gentleman seen with progressive left shoulder pain. We discussed options for treatment. He elected to proceed with left shoulder arthroscopy. Consent regarding the procedure was obtained. Cardiac clearance was provided. PAST MEDICAL HISTORY: Cardiovascular disease, hypertension, hyperlipidemia. PAST SURGICAL HISTORY: Noncontributory. DAILY MEDICATIONS: 1. Carvedilol. 2. Aspirin. 3. Atorvastatin. 4. Furosemide. 5. Losartan. 6. Ibuprofen. ALLERGIES: Zinc. SOCIAL HISTORY: Denies tobacco use. PHYSICAL EVALUATION OF THE LEFT SHOULDER: Flexion is 140 degrees, abduction is 110 degrees, external rotation is 50 degrees with some pain and weakness. He has tenderness along the anterior lateral acromion along with the rotator cuff insertion site. Impingement site positive at 90 degrees. Drop- arm sign is positive. Distal neurovascular exam is intact. RADIOGRAPHS: Radiographs of the left shoulder revealed a type 2 acromion, evidence for previous grade 3 AC separation, cystic changes of the tuberosity. MRI left shoulder revealed rotator cuff tear and labral tear. IMPRESSION: 1. Left shoulder impingement with rotator cuff tear. 2. Left shoulder labral tear. 3. History of chronic grade 3 AC separation, left shoulder. 4. Hypertension. 5. Hyperlipidemia. PLAN: Left shoulder arthroscopy with subacromial decompression, arthroscopic rotator cuff repair and debridement. MMODL / IJN: [id number] /
[2023-03-24] MEDS ORDERED: DEXAMETHASONE SOD PHOSPHATE 4 MG/ML 1 ML VIAL ONE (07:55)
[2023-03-24] MEDS ORDERED: PROPOFOL 10 MG/ML 20 ML VIAL IV ONE (07:55)
[2023-03-24] MEDS ORDERED: LIDOCAINE 2% INJ 20 MG/ML (2 ML VIAL) ONE (07:55)
[2023-03-24] MEDS ORDERED: GLYCOPYRROLATE 0.2 MG/ML 2 ML VIAL ONE (07:55)
[2023-03-24] MEDS ORDERED: NEOSTIGMINE 1 MG/ML 10 ML VIAL ONE (07:55)
[2023-03-24] MEDS ORDERED: MIDAZOLAM 2 MG/2 ML VIAL ONE (07:55)
[2023-03-24] MEDS ORDERED: fentaNYL (PF) 50 MCG/ML 2 ML AMP ONE (07:55)
[2023-03-24] MEDS ORDERED: ROPIVACAINE 5 MG/ML 30 ML VIAL ONE (07:55)
[2023-03-24] MEDS ORDERED: ROCURONIUM 10 MG/ML (5 ML VIAL) IV ONE (07:55)
[2023-03-24] MEDS ORDERED: PHENYLEPHRINE-0.9% NACL SYG 1,000 MCG/10 ML SYRINGE ONE (07:55)
[2023-03-24] MEDS ORDERED: SUCCINYLCHOLINE CHLORIDE 200 MG/10 ML VIAL IV ONE (07:55)
--- NOTE | 2023-03-24 08:24 | P.ANPRN ---
Procedure Note - Anesthesia - Nerve Block Performed Left Interscalene Time Out Performed: Yes (:) Date of Procedure: 03/24/23 Procedure Start Time: Procedure Stop Time: Location of Patient: PreOp Indication: Acute Post-Operative Pain, Requested by Surgeon (Dr arriola) Sedation Type: Sedate with meaningful contact maintained Preparation: Sterile Prep Position: Supine Catheter: None Needle Types: Pajunk Needle Gauge: Other (see comment) (22g) Ultrasound used to visualize needle placement: Yes Ultrasound used to observe medication spread: Yes Injectate: 0.5% Ropivacaine (see comment for volume) (20cc + Decadron 4mg) Blood Aspirated: No Pain Paresthesia on Injection Noted: No Resistance on Injection: Normal Image Stored and Saved: Yes Events: Uneventful and Well Tolerated
[2023-03-24 09:50] VITALS: TEMP 97
--- NOTE | 2023-03-24 09:53 | P.OP ---
Date of Procedure: 03/24/23 Preoperative Diagnosis: Left shoulder impingement Postoperative Diagnosis: 1. Left shoulder rotator cuff 2. Left shoulder impingement 3. Left shoulder partial long head biceps tendon tear 4. Left shoulder superficial anterior labral tear Procedure(s) Performed: 1. Left shoulder arthroscopic rotator cuff repair 2. Left shoulder arthroscopic subacromial decompression 3. Left shoulder arthroscopic biceps tenodesis 4. Left shoulder arthroscopic debridement superficial labral tear Implants: 2Arthrex 4.75 swivel lock anchors Anesthesia: GETA, regional (Interscalene block) Surgeon: Robert Westbrook Visual Educator #1: Bacilio Ware Estimated Blood Loss (ml): 11 Pathology: none sent Condition: stable Disposition: PACU Indications for Procedure: 63-year-old patient seen with progressive left shoulder pain. After having treatment options discussed, he elected to proceed with arthroscopy. Operative Findings: See description of procedure Description of Procedure: Patient underwent an interscalene block by department of anesthesia. The patient was then taken to the operative suite. The patient underwent a general anesthetic by the department of anesthesia. The patient was placed into a lateral position and secured. There was appropriate padding of the bony prominence. Left shoulder was then prepped and draped in normal sterile orthopedic fashion. We placed the extremity in 10 pounds of longitudinal traction. A posterior incision was now made for a posterior working portal site. The trocar and cannula were inserted into the glenohumeral joint. Arthroscopy was initiated. Spinal needle was now inserted anteriorly, to ascertain the anterior working portal site. An incision was now made in that area, a trocar was inserted followed by a probe. There was partial tearing and hyperemia involving long head biceps tendon. There was some superficial tearing of the anterior labrum. There were grade 1 chondromalacia changes of the glenohumeral joint. I could visualize an obvious rotator cuff tendon tear. I debrided out the superficial labral tear. I now introduced a cannula through my anterior portal site. I decided to proceed with a biceps tenodesis. With the assistance of Dejan TENA now created a loop intact stitch into the distal intra- articular portion of the long head biceps tendon. I cut the tendon right at the junction of the tendon/labrum superiorly. With the assistance of Dejan TENA now inserted a punch and created a hole at the anterior interval for insertion of an anchor. I now passed a stitch through the eyelet of a Arthrex 4.75 swivel lock anchor. I placed the eyelet into the pre-punch hole. I held in position while Dejan TENA tensiond the suture and deployed the anchor was good fixation noted. We noted a stable appearing biceps tenodesis. Instruments now removed from the glenohumeral joint. Utilizing the posterior working portal site, the trocar and cannula were inserted into the subacromial space. Arthroscopy initiated. I made an incision 2 fingerbreadths lateral to the acromion. I introduced my trocar followed by my ArthroCare ablator. I now began ablating thick subacromial bursal tissue, which exposed the undersurface of the anterior acromion. There was diminished subacromial space. There was a very prominent anterior acromion. A motorized bur was introduced and a subacromial decompression was performed. I could not visualize the distal clavicle with history of previous chronic grade 3 acromioclavicular joint separation. We had a good adequate decompression. I turned my attention to the rotator cuff tendon. There was a 2 cm intrasubstance tear involving the supraspinatus tendon. There was also 1.5 cm distal supraspinatus tendon tear noted. I debrided all the margins getting down to stable tendon tissue. I abraded the footprint with a motorized bur. With the assistance of Dejan TENA now repaired intrasubstance tear utilizing 3 simple interrupted sutures with good stable repair noted there. I now passed 3 everted mattress sutures through good bites of rotator cuff with the assistance of Dejan TENA. I punched all the footprint area for insertion of the knee. All 6 limbs of suture were passed through the eyelet of a Arthrex 4.75 swivel lock anchor. I placed our eyelet into our pre-punch hole. I held in position while Dejan TENA tension all 6 limbs of suture and deployed the anchor with good fixation noted. All residual suture limbs were now clipped. We had good compression of the tendon along the entire footprint. Instruments now removed from the portal sites. All portal sites were approximated with nylon suture. Sterile dressings were applied followed by a shoulder immobilizer. Bacilio TENA assisted in this complex case. The patient was awakened, transferred to a bed, and taken to recovery in stable condition.
[2023-03-24] MEDS ORDERED: LACTATED RINGERS 1,000 ML IV ONE (10:12)
[2023-03-24 10:42] VITALS: RESP 20
[2023-03-24 11:06] VITALS: BP 123/79; PULSE 52
== END 2023-03-24 11:23 | disposition home or self-care (01) ==
LOC: OR 06:03
PROVIDERS: ATTEND Orthopaedic Surgery
DX: S43.432A Superior glenoid labrum lesion of left shoulder, initial encounter (principal); M75.42 Impingement syndrome of left shoulder; M75.112 Incomplete rotator cuff tear or rupture of left shoulder, not specified as traumatic; I10 Essential (primary) hypertension; E78.5 Hyperlipidemia, unspecified; Z79.82 Long term (current) use of aspirin; Z79.899 Other long term (current) drug therapy; X58.XXXA Exposure to other specified factors, initial encounter
CPT/HCPCS: 64415; 29827; 29826; 29828; C1713 ×3; C1894; J2250; J0330; J1100; J2710; J0690; J2405; J3010; J2795; J2370; J2704; J2001

== ENCOUNTER → 2023-06-08 | Outpatient (CLI) | payer BC ==
[2023-06-08 15:35] LABS: T4, Free (Free Thyroxine) 0.99 ng/dL (0.80-1.80)
== END | disposition home or self-care (01) ==
LOC: LABWHC1 09:12
PROVIDERS: ATTEND Internal Medicine Endocrinology, Diabetes & Metabolism
DX: E04.2 Nontoxic multinodular goiter (principal)
CPT/HCPCS: 36415; 84439; 84443

== ENCOUNTER → 2023-07-08 | Outpatient (CLI) | payer BC ==
--- NOTE | 2023-07-08 09:27 | US ---
EXAMINATION TYPE: US thyroid st tissue head/neck DATE OF EXAM: 07/08/2023 COMPARISON: US 07/28/2022 CLINICAL INDICATION: Male, 63 years old with history of E04.2 NONTOXIC MULTINODULAR GOITER; Hx FNA, g oiter, nodules. GLAND SIZE: Right Lobe: 4.8 x 1.6 x 1.8 cm Overall Parenchyma: heterogenous Left Lobe: 5.4 x 1.9 x 1.8 cm Overall Parenchyma: heterogenous Isthmus Thickness: 0.33 cm NODULES RIGHT: # of nodules measured on right: 2 1. 0.6 X 0.5 x 0.3 cm, lower lateral Prior size: 0.5 x 0.4 x 0.4 cm TIRADS Score: 0 TIRADS Category 1: Benign Composition: Cystic or almost completely cystic (0 points). Recommendation: No FNA 2. 1.4 X 1.2 x 1.2 cm, lower mid, Prior size: 1.0 x 0.9 x 1.2 cm TIRADS Score: 3 TIRADS Category 3: Mildly Suspicious Composition: Solid or almost completely solid (2 points). Echogenicity: Hyperechoic or isoechoic (1 point). Shape: Wider than tall (0 points). Margin: Smooth (0 points). Echogenic foci: None or large comet-tail artifacts (0 points) Recommendation: If >2.5cm: FNA; If >1.5cm: Follow up at 1,3,5 years LEFT: # of nodules measured on left: 2 1. 1.7 X 1.6 x 1.4 cm, lower mid, Prior size: 1.6 x 1.3 x 1.3 cm TIRADS Score: 4 TIRADS Category 4: Moderately Suspicious Composition: Solid or almost completely solid (2 points). Echogenicity: Hypoechoic (2 points). Shape: Wider than tall (0 points). Margin: Smooth (0 points). Echogenic foci: None or large comet-tail artifacts (0 points) Recommendation: If >1.5cm: FNA; If >1cm: Follow up at 1,2, 3,5 years 2. 1.5 X 1.0 x 1.0 cm, lower medial, Prior size: 1.9 x 1.3 x 1.0 cm TIRADS Score: 4 TIRADS Category 4: Moderately Suspicious Composition: Solid or almost completely solid (2 points). Echogenicity: Hypoechoic (2 points). Shape: Wider than tall (0 points). Margin: Smooth (0 points). Echogenic foci: None or large comet-tail artifacts (0 points) Recommendation: If >1.5cm: FNA; If >1cm: Follow up at 1,2, 3,5 years ISTHMUS: # of nodules measured in the isthmus: 0 Bilateral neck scanned, no evidence of lymphadenopathy. IMPRESSION: Left thyroid nodules meet criteria for tissue sampling, the left thyroid nodule #2 was already biopsi ed 08/11/2022. Considered FNA of thyroid nodule #1 on the left.
== END | disposition home or self-care (01) ==
LOC: RADUSWWP 06:49
PROVIDERS: ATTEND Internal Medicine Endocrinology, Diabetes & Metabolism
DX: E04.2 Nontoxic multinodular goiter (principal)
CPT/HCPCS: 76536

== ENCOUNTER → 2024-02-08 | Day surgery (SDC) | payer MEDICARE, BC ==
[2024-02-04 14:20] VITALS: BMI 29.8
[~2024-02-08] MED LIST changes: -DEXAMETHASONE SOD PHOSPHATE 4 MG/ML 1 ML VIAL IV ONE; -LACTATED RINGERS 1,000 ML IV SCH; -LIDOCAINE 1% (10MG/ML) FOR IV START INTRADERMA PRN; +LIDOCAINE 1% INJ 10MG/ML (20 ML MDV) ONE; -MIDAZOLAM 2 MG/2 ML VIAL IV PRN; -ONDANSETRON 4 MG/2 ML VIAL IVP ONE; +PROPOFOL 10 MG/ML 20 ML VIAL IV ONE
[2024-02-08] MEDS: LACTATED RINGERS 1,000 ML IV SCH (06:56)
[2024-02-08 07:16] VITALS: RESP 16; TEMP 98.1
--- NOTE | 2024-02-08 07:48 | P.PCN ---
Date of Procedure: 02/08/24 Procedure(s) Performed: Brief history: Patient is a pleasant 64-year-old white male scheduled for an elective upper endoscopy as well as colonoscopy as a part of evaluation of GERD and screening for colon cancer. Father was diagnosed with colon cancer at age 42. Procedure performed: Esophagogastroduodenoscopy with biopsy Colonoscopy Preoperative diagnosis: GERD Screening for colon cancer and family history of colon cancer Anesthesia: MAC Procedure: After informed consent was obtained from the patient was brought into the endoscopy unit and IV sedation was administered by anesthesia under continuous monitoring. Initially upper endoscopy was done. The Olympus GF 160 video endoscope was inserted inserted into the mouth and esophagus intubated without any difficulty and was gradually advanced into the stomach and duodenum and carefully examined. The bulb and second part of the duodenum appeared normal. The scope was then withdrawn into the stomach adequately insufflated with air and upon careful examination the antrum had mild gastritis and biopsies were done from this area. Mucosa of the body, cardia and fundus appeared normal. The scope was then withdrawn into the esophagus. Small hiatal hernia noted. The GE junction was located at 40 cm to the incisors. It appeared regular with no erythema erosions or ulcerations. Rest of the esophagus appeared normal. Patient tolerated the procedure well. At this time the patient continued to remain sedation. Initial digital rectal examination was normal. Olympus CF 160 video colonoscope was then inserted into the rectum and gradually advanced to the cecum without any difficulty. Careful examination was performed as the scope was gradually being withdrawn. The prep was excellent. The cecum, ascending colon, transverse colon, descending colon, sigmoid colon and rectum appeared normal. Scattered sigmoid diverticulosis. Retroflexion was performed in the rectum and no lesions were noted. Patient tolerated the procedure well. Impression: 1. Upper endoscopy revealed mild gastritis and small hiatal hernia 2. Colonoscopy revealed scattered sigmoid diverticulosis but no evidence of colorectal neoplasia Recommendations: Findings of this examination were discussed with the patient as well as his family. He was advised to have a repeat screening colonoscopy every 5 years because of the family history of colon cancer
[2024-02-08 08:25] VITALS: BP 121/83; PULSE 101
== END ==
LOC: ORWHC2ENDO 06:15
PROVIDERS: ATTEND Internal Medicine Gastroenterology
DX: Z12.11 Encounter for screening for malignant neoplasm of colon (principal); K29.50 Unspecified chronic gastritis without bleeding; K21.9 Gastro-esophageal reflux disease without esophagitis; K57.30 Diverticulosis of large intestine without perforation or abscess without bleeding; K44.9 Diaphragmatic hernia without obstruction or gangrene; I10 Essential (primary) hypertension; E78.5 Hyperlipidemia, unspecified; Z80.0 Family history of malignant neoplasm of digestive organs; Z87.891 Personal history of nicotine dependence; Z88.8 Allergy status to other drugs, medicaments and biological substances; Z79.899 Other long term (current) drug therapy
CPT/HCPCS: 88305; 43239; J2001; J2704; G0105

== ENCOUNTER → 2024-09-25 | Outpatient (CLI) | payer MEDICARE, BC ==
--- NOTE | 2024-09-25 14:22 | US ---
EXAMINATION TYPE: US Aorta Screening DATE OF EXAM: 09/25/2024 COMPARISON: NONE CLINICAL INDICATION: Male, 64 years old with history of Z136 AAA; screen TECHNIQUE: Multiple sonographic images of the abdominal aorta are obtained with grayscale and color D oppler imaging. 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 [facility], , 09/25/2024 2:20 PM
--- NOTE | 2024-09-25 14:41 | US ---
EXAMINATION TYPE: US thyroid st tissue head/neck DATE OF EXAM: 09/25/2024 COMPARISON: 07/08/2023 CLINICAL INDICATION: Male, 64 years old with history of E04.1 THYROID NODULE; nodules TECHNIQUE: Grayscale and color Doppler imaging of the thyroid gland. FINDINGS: GLAND SIZE: Right Lobe: 5.8x2.3x1.7 cm Overall Parenchyma: heterogeneous Left Lobe: 5.8x1.6x1.6 cm Overall Parenchyma: heterogeneous Isthmus Thickness: 0.3 cm NODULES RIGHT: # of nodules measured on right: 1 1. 1.1 X 1.4 x 1.1 cm, lower mid, solid or almost completely solid, nodule, which is taller than wi de, with ill-defined margins, without echogenic foci. Prior size: 1.4 x 1.2 x 1.2 cm LEFT: # of nodules measured on left: 1 1. 1.5 X 1.4 x 1.4 cm, lower mid, solid or almost completely solid, nodule, which is wider than collin l, with smooth margins, without echogenic foci. Prior size: 1.7 x 1.4 x 1.6 cm ISTHMUS: # of nodules measured in the isthmus: 0 Bilateral neck scanned, no evidence of lymphadenopathy. IMPRESSION: Mildly Suspicious: FNA if ? 2.5 cm; Follow if ? 1.5 cm at 1, 3, and 5 y 2017 ACR TI-RADS LEVEL: TR3 *Highest TI-RADS level nodule reported [email or web address] [facility], , 09/25/2024 2:39 PM
== END | disposition home or self-care (01) ==
LOC: RADUSWWP 07:13
PROVIDERS: ATTEND Internal Medicine
DX: Z13.6 Encounter for screening for cardiovascular disorders (principal); E04.1 Nontoxic single thyroid nodule
CPT/HCPCS: 76536; 76706

== ENCOUNTER → 2025-04-04 | Outpatient (CLI) | payer MEDICARE | END | disposition home or self-care (01) | LOC: LABWHC1 09:21 | PROVIDERS: ATTEND Internal Medicine | DX: L03.032 Cellulitis of left toe (principal); T63.301A Toxic effect of unspecified spider venom, accidental (unintentional), initial encounter | CPT/HCPCS: 87040 ==